=== PATIENT | male | born 1945 | race Caucasian/White ===

== ENCOUNTER 2017-12-07 18:23 | Emergency (ER) | payer OTHER, MEDICARE ==
[~2017-12-07] VITALS: Ht 185.4 cm; Wt 82.0 kg
[2017-12-07] MEDS ORDERED: IV NORMAL SALINE 1,000ML 1,000 ML IV SCH (18:51)
--- NOTE | 2017-12-07 18:59 | PHYS DOC ---
Past History Past Medical History: High Cholesterol, Hypertension, PA Past Surgical History: Other Additional Past Surgical Histo: stenting, AICD placement a smoker Smoking: Cigarettes, Greater than 1 pack/day Alcohol Use: None Drug Use: None Adult General Chief Complaint Chief Complaint: cough with myalgias [facility] HPI Patient is a pleasant 72-year-old male with a known history of CAD with prior stenting back in 2003+ the placement of an AICD pacemaker who presents with history of hypertension hyperlipidemia who now comes in with a three-day history of nonproductive cough during her myalgias and chest tightness. Patient says the symptoms began after being outside working at his job he felt a little chilled developed a low-grade fever developed a nonproductive cough with flulike symptoms. He's had aches in his upper back and shoulders or arms that is been described as achy not improved with Tylenol or oqtu-yvm-tzkouur TheraFlu , patient admits to no sick contacts, no recent travel outside the country no recent antibiotics. He is not in any kind DuoNeb's routinely at home is not been any recent steroids, been intubated and he does not use oxygen at home. Patient says there is no real chest pain just chest tightness and significant shortness of breath he just feels achy all over. he did receive a flu shot this year but Differential diagnosis includes the following: Acute myocardial ischemia, heart failure, cardiac tamponade, bronchospasm, pulmonary embolism, pneumothorax, pulmonary infection i.e. bronchitis or pneumonia, upper airway obstruction, anaphylaxis, aspiration, psychogenic, pulmonary contusion, toxidrome, pneumomediastinum, noncardiogenic pulmonary edema or ARDS, COPD, tuberculosis, cystic fibrosis, asthma, high altitude pulmonary edema, valvular dysfunction, cardiac dysrhythmia, stroke, neuromuscular diseases like myasthenia gravis gravis, ALS, Guillain-Pitts syndrome, metabolic acidosis to include diabetic ketoacidosis, sepsis, and obstructive disorders like massive obesity Review of Systems Review of Systems Constitutional: Positive for fevers chills but nothing documented. Eyes: Denies change in visual acuity, redness, or eye pain [] HENT: Positive for nasal congestion without sore throat Respiratory: Positive for cough and chest tightness but no chest shortness of breath Cardiovascular: No additional information not addressed in HPI [] GI: Denies abdominal pain, nausea, vomiting, bloody stools or diarrhea [] : Denies dysuria or hematuria [] Musculoskeletal: Denies back pain or joint pain positive for general myalgias nonspecific [] Integument: Denies rash or skin lesions [] Neurologic: Denies headache, focal weakness or sensory changes [] Endocrine: Denies polyuria or polydipsia [] All other systems were reviewed and found to be within normal limits, except as documented in this note. Allergies Allergies Allergies Coded Allergies Type Severity Reaction Last Updated Verified Penicillins Allergy Unknown 03/14/16 Yes Physical Exam Physical Exam Other vital signs recorded the chart within normal limits not hypoxic not tachypnea not febrile Constitutional: Well developed, well nourished, no acute distress, non-toxic appearance. [] HENT: Normocephalic, atraumatic, bilateral external ears normal, oropharynx dry mucous members with mild erythema but, no oral exudates, nose normal. [] Eyes: PERRLA, EOMI, conjunctiva normal, no discharge. [] Neck: Normal range of motion, no tenderness, supple, no stridor. No anterior cervical lymphadenopathy [] Cardiovascular:Heart rate regular rhythm, no murmur no gallops or rubs noted [] Lungs & Thorax: Bilateral breath sounds clear to auscultation she does have some coarse rhonchi at the bases with occasional exhalation [] Abdomen: Bowel sounds normal, soft, no tenderness, no masses, no pulsatile masses. [] Skin: Warm, dry, no erythema, no rash. [] Back: No tenderness, [] Extremities: No tenderness, no cyanosis, no clubbing, ROM intact, no edema. [] Neurologic: Alert and oriented X 3, normal motor function, normal sensory function, no focal deficits noted. [] Psychologic: Affect normal, judgement normal, mood normal. 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 There is no new ST segment T-wave changes consistent with acute cord ischemia today this isn't abnormal EKG. Radiology/Procedures Radiology/Procedures []Patient's 2 view chest x-ray by me that here in the emergency department demonstrates mild hyperinflated lungs but no distinct pulmonary infiltrates, consistent with a pneumonia, there is no cardiomegaly, there is some mild constipation to the aorta but no evidence of dissection, there is no free air under the diaphragm is noted on the chest x-ray patient also has no bony abnormalities. Course & Med Decision Making Course & Med Decision Making Pertinent Labs and Imaging studies reviewed. (See chart for details) []he presented with cough and myalgias and questionable chest tightness. Because of his cardiac risk factors and smoking we will screen him for flu, pneumonia and other causes of shortness of breath in my shortness of breath differential was considered above in the history of present illness. Patient be given Solu-Medrol, DuoNeb 1 flu swab will be completed as well as chest x-ray and appropriate cardiac workup. Laboratory Tests Test 12/07/17 19:03 White Blood Count 7.2 x10^3/uL (4.0-11.0) Red Blood Count 5.10 x10^6/uL (4.30-5.70) Hemoglobin 13.5 g/dL (13.0-17.5) Hematocrit 40.9 % (39.0-53.0) Mean Corpuscular Volume 80 fL (79-100) Mean Corpuscular Hemoglobin 27 pg (25-35) Mean Corpuscular Hemoglobin Concent 33 g/dL (31-37) Red Cell Distribution Width 15.5 % (11.5-14.5) H Platelet Count 124 x10^3/uL (140-400) L Neutrophils (%) (Auto) 74 % (31-73) H Lymphocytes (%) (Auto) 10 % (24-48) L Monocytes (%) (Auto) 11 % (0-9) H Eosinophils (%) (Auto) 5 % (0-3) H Basophils (%) (Auto) 1 % (0-3) Neutrophils # (Auto) 5.3 x10^3uL (1.8-7.7) Lymphocytes # (Auto) 0.8 x10^3/uL (1.0-4.8) L Monocytes # (Auto) 0.8 x10^3/uL (0.0-1.1) Eosinophils # (Auto) 0.3 x10^3/uL (0.0-0.7) Basophils # (Auto) 0.1 x10^3/uL (0.0-0.2) Sodium Level 136 mmol/L (136-145) Potassium Level 3.7 mmol/L (3.5-5.1) Chloride Level 101 mmol/L (98-107) Carbon Dioxide Level 25 mmol/L (21-32) Anion Gap 10 (6-14) Blood Urea Nitrogen 15 mg/dL (8-26) Creatinine 1.1 mg/dL (0.7-1.3) Estimated GFR (Cockcroft-Gault) 66.2 Glucose Level 124 mg/dL (70-99) H Calcium Level 10.0 mg/dL (8.5-10.1) Magnesium Level 1.8 mg/dL (1.8-2.4) Total Bilirubin 0.2 mg/dL (0.2-1.0) Direct Bilirubin 0.1 mg/dL (0.0-0.2) Aspartate Amino Transferase (AST) 27 U/L (15-37) Alanine Aminotransferase (ALT) 28 U/L (16-63) Alkaline Phosphatase 77 U/L (46-116) Creatine Kinase 185 U/L (39-308) Creatine Kinase MB (Mass) 0.5 ng/mL (0.0-3.6) Creatine Kinase MB Relative Index 0.3 % (0-4) Troponin I Quantitative 0.034 ng/mL (0-0.055) TI-Kvg-N-Type Natriuretic Peptide 487 pg/mL (0-124) H Total Protein 7.3 g/dL (6.4-8.2) Albumin 3.5 g/dL (3.4-5.0) Lipase 215 U/L (73-393) Influenza Type A (Rapid) Positive (NEGATIVE) Influenza Type B (Rapid) Negative (NEGATIVE) Patient's white blood cell count is normal, H&H is normal, patient does have a neutrophil predominance like from an acute phase reactant from an infection. Patient's influenza swab was positive for influenza a negative for influenza B patient's troponin was negative, patient's proBNP was mildly elevated at 487. Do not believe the patient is informed failure patient's lipase is normal at 2: 15, LFTs within normal limits, patient's glucose level is mildly elevated at 128. At this point patient's family and I discussed the results. Patient tells me that their symptoms given during CC are improved. We reviewed labs and radiology reports with patient and any family at bedside. He is feeling better time is now 8:26 PM his tachycardia is improved his fevers is resolved patient is satting 100% on room air he is comfortable History: patient has a history of an risk factors for heart disease I screened him for heart injury at this particular evaluation. Given his low suspicion on history, no changes on EKG, his age and negative troponin he is low risk at this time and will follow-up with his primary care doctor. His score was 2. Highly suspicious 2 points moderately suspicious 1. slightly suspicious 0 point EKG: ST segment depression 2. nonspecific repolarization disturbance 1. normal 0 point Age: Greater than 65 2 points, 65-45 1., less than 45 years old 0 points Risk factors:> 3 risk factors 2 points, 1-2 risk factors one point, no risk factors 0 point Troponin: > 2 times normal 2 points, 1-2 times normal 1., normal limits 0 point Total score: Score % pts MACE/n MACE Policy 0-3 32% 1.9% 0.05% Discharge 4-6 51% 413/3136 13% 1.3% Observation Risk management 7-10 17% 518/1045 50% 2.8% Observation Treatment, CAG discharge: I've spoken with the patient and/or caregivers. I've explained the patient's condition, diagnosis and treatment plan based on information available to me at this time. I've answered the patient's and/or caregivers questions and addressed any concerns. The patient and/or caregivers have a good understanding the patient's diagnosis, condition and treatment plan as can be expected at this point. Vital signs have been stabilized. The patient's condition is stable for discharge from the emergency department. The patient will pursue further outpatient evaluation with her primary care provider or other designated consulting physician as outlined in the discharge instructions. Patient and/or caregivers are agreeable to this plan of care and follow-up instructions have been explained in detail. The patient and/or caregivers have received these instructions in written format and expressed understanding of these discharge instructions. The patient and her caregivers are aware that if any significant change in condition or worsening of symptoms should prompt him to immediately return to this of the closest emergency department. If an emergent department is not readily available I would encourage him to call 911. Guero Disclaimer Guero Disclaimer This electronic medical record was generated, in whole or in part, using a voice recognition dictation system. Departure Departure: Impression: Primary Impression: Influenza A Disposition: 01 HOME, SELF-CARE Condition: IMPROVED Referrals: ALEKSANDR DAVIS (PCP) Patient Instructions: Influenza A (H1N1) Additional Instructions: discharge: I've spoken with the patient and/or caregivers. I've explained the patient's condition, diagnosis and treatment plan based on information available to me at this time. I've answered the patient's and/or caregivers questions and addressed any concerns. The patient and/or caregivers have a good understanding the patient's diagnosis, condition and treatment plan as can be expected at this point. Vital signs have been stabilized. The patient's condition is stable for discharge from the emergency department. The patient will pursue further outpatient evaluation with her primary care provider or other designated consulting physician as outlined in the discharge instructions. Patient and/or caregivers are agreeable to this plan of care and follow-up instructions have been explained in detail. The patient and/or caregivers have received these instructions in written format and expressed understanding of these discharge instructions. The patient and her caregivers are aware that if any significant change in condition or worsening of symptoms should prompt him to immediately return to this of the closest emergency department. If an emergent department is not readily available I would encourage him to call 911. Scripts Benzonatate (TESSALON PERLE) 100 Mg Capsule 1 CAP PO TID, #21 CAP Prov: GLENIS PACHECO MD 12/07/17 Naproxen Sodium (NAPROXEN SODIUM) 275 Mg Tablet 275 MG PO BID for 7 Days, #14 TAB Prov: GLENIS PACHECO MD 12/07/17 Guaifenesin/Dextromethorphan (MUCINEX DM ER 1,200-60 MG TAB) 1 Each Tbmp.12hr 1 TAB PO BID, #20 TAB 1 Refill Prov: GLENIS PACHECO MD 12/07/17 Oseltamivir Phosphate (TAMIFLU) 75 Mg Capsule 1 CAP PO BID, #10 CAP Prov: GLENIS PACHECO MD 12/07/17 GLENIS PACHECO MD Dec 07, 2017 18:59
[2017-12-07] MEDS ORDERED: 0.9 % SODIUM CHLORIDE 10 ML DISP.SYRIN. IV PRN (19:00)
[2017-12-07] MEDS ORDERED: IPRATRPIUM/ALBUTEROL 0.5/2.5MG 3 ML NEBU. NEB ONE (19:00)
[2017-12-07] MEDS ORDERED: CIPROFLOXACIN 400MG PREMIX 200 ML IV ONE (19:00)
[2017-12-07] MEDS ORDERED: methylPREDNISolone SOD SUCC PF 125 MG/2 ML VIAL. IV ONE (19:00)
[2017-12-07 19:48] LABS: BASO # 0.1 x10^3/uL (0.0-0.2); BASO % 1 % (0-3); EOS # 0.3 x10^3/uL (0.0-0.7); EOS % 5 % (0-3); HEMATOCRIT 40.9 % (39.0-53.0); HEMOGLOBIN 13.5 g/dL (13.0-17.5); LYMPH # 0.8 x10^3/uL (1.0-4.8); LYMPH % 10 % (24-48); MEAN CORPUSCULAR HEMOGLOBIN 27 pg (25-35); MEAN CORPUSCULAR HGB CONC 33 g/dL (31-37); MEAN CORPUSCULAR VOLUME 80 fL (79-100); MONO # 0.8 x10^3/uL (0.0-1.1); MONO % 11 % (0-9); NEUT # 5.3 x10^3uL (1.8-7.7); NEUT % 74 % (31-73); PLATELET COUNT 124 x10^3/uL (140-400); RED CELL DISTRIBUTION WIDTH 15.5 % (11.5-14.5); WHITE BLOOD COUNT 7.2 x10^3/uL (4.0-11.0)
[2017-12-07 20:01] LABS: INFLUENZA A PATIENT POSITIVE (NEGATIVE); INFLUENZA B PATIENT NEGATIVE (NEGATIVE)
[2017-12-07 20:06] LABS: ALBUMIN 3.5 g/dL (3.4-5.0); CREATININE 1.1 mg/dL (0.7-1.3); DIRECT BILIRUBIN 0.1 mg/dL (0.0-0.2); GFR 66.2; MAGNESIUM 1.8 mg/dL (1.8-2.4); POTASSIUM 3.7 mmol/L (3.5-5.1); TOTAL BILIRUBIN 0.2 mg/dL (0.2-1.0); TOTAL PROTEIN 7.3 g/dL (6.4-8.2)
[2017-12-07] MEDS ORDERED: BENZ100C PO (20:29)
[2017-12-07] MEDS ORDERED: GUAI1TBM10 PO (20:29)
[2017-12-07] MEDS ORDERED: NAPR275T59 PO (20:29)
[2017-12-07] MEDS ORDERED: OSEL75CA PO (20:29)
[2017-12-07 20:31] VITALS: BP 105/64
[2017-12-07] MEDS ORDERED: OSELTAMIVIR 75 MG CAPSULE PO ONE ×2 (20:34→21:00)
--- NOTE | 2017-12-08 08:05 | RAD ---
Chest, 2 views, 12/07/2017: History: Cough, shortness of breath, chest discomfort Comparison is made to a study from 03/14/2016. A left-sided transvenous pacing device remains in place with 3 leads extending into the right heart. The heart size and pulmonary vascularity are normal. There is calcific plaquing of the aorta. A linear calcification projected over the anterior aspect of the heart is probably pericardial. No pulmonary infiltrates are seen. There is no evidence of pleural fluid. IMPRESSION: No acute cardiopulmonary abnormality is detected.
--- NOTE | 2017-12-09 16:22 | EKG ---
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
== END 2017-12-07 20:49 | disposition home or self-care (01) ==
LOC: ER 18:23
DX: J09.X2 Influenza due to identified novel influenza A virus with other respiratory manifestations (principal); R07.89 Other chest pain; E78.00 Pure hypercholesterolemia, unspecified; I10 Essential (primary) hypertension; I25.2 Old myocardial infarction; I25.10 Atherosclerotic heart disease of native coronary artery without angina pectoris; F17.210 Nicotine dependence, cigarettes, uncomplicated; Z95.810 Presence of automatic (implantable) cardiac defibrillator; Z95.5 Presence of coronary angioplasty implant and graft; Z88.0 Allergy status to penicillin
CPT/HCPCS: 36415; 71046; 80048; 80076; 82553; 83690; 83735; 83880; 84443; 84484; 85025; 87804; 93005; 94640; 96365; 96375; 99285; J0744; J2930; J7620; J7030

== ENCOUNTER → 2017-12-11 | Outpatient (CLI) | payer MEDICARE, OTHER ==
[2017-12-07 20:31] VITALS: BP 105/64
[~2017-12-11] MED LIST: BENZ100C PO; GUAI1TBM10 PO; HYDR-79 PO; NAPR275T59 PO; OSEL75CA PO
--- NOTE | 2017-12-11 15:05 | RAD ---
Chest, 2 views, 12/11/2017: History: Dyspnea Comparison is made to a study from 12/07/2017. A left-sided transvenous pacemaker remains in place with active and inactive leads extending into the right heart. The heart size is normal. A coronary artery stent is projected over the posterior aspect of the heart. A calcification projected over the anterior aspect of the heart may be vascular or pericardial. There is calcific plaquing of the aorta. The pulmonary vascularity is normal. No pulmonary infiltrate is seen. There is no evidence of pleural fluid. IMPRESSION: No acute cardiopulmonary abnormality is detected.
== END | disposition home or self-care (01) ==
LOC: PMG 14:33
PROVIDERS: ATTEND Physician Assistant
DX: R06.00 Dyspnea, unspecified (principal); I11.0 Hypertensive heart disease with heart failure; I50.9 Heart failure, unspecified; F17.200 Nicotine dependence, unspecified, uncomplicated; Z95.0 Presence of cardiac pacemaker
CPT/HCPCS: 71046

== ENCOUNTER 2017-12-12 16:35 | Emergency (ER) | payer MEDICARE, OTHER ==
[~2017-12-12] VITALS: Ht 185.4 cm; Wt 77.1 kg
[~2017-12-12 16:35] MED LIST changes: -HYDR-79 PO
[2017-12-12] MEDS ORDERED: IPRATRPIUM/ALBUTEROL 0.5/2.5MG 3 ML NEBU. NEB ONE (17:00)
--- NOTE | 2017-12-12 17:08 | EKG ---
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
[2017-12-12] MEDS ORDERED: methylPREDNISolone SOD SUCC PF 125 MG/2 ML VIAL. IV ONE (17:30)
--- NOTE | 2017-12-12 18:21 | ED.ADGEN ---
Past History Past Medical History: CAD, High Cholesterol, Hypertension Past Surgical History: Pacemaker Additional Past Surgical Histo: stenting, AICD placement a smoker Smoking: Cigarettes, Greater than 1 pack/day Alcohol Use: None Drug Use: None Adult General Chief Complaint Chief Complaint " I got this cough... I know I got the flu... but I can't sleep because the coughing at night..." HPI HPI Patient is a 72 year old male who presents with above hx and complaints of cough that is keeping her up at night when he attempts to sleep. Patient is aware that he is been diagnosed with + Influ. A on 12/07/17. Only complaint is his cough. Patient has tried use MDI with minimal reduction in his cough. Patient denies any other changes in his overall medical condition. No recent travel. No specific ill contacts. Review of Systems Review of Systems Constitutional: History of fever or chills [] Eyes: Denies change in visual acuity, redness, or eye pain [] HENT: History of nasal congestion and sore throat [] Respiratory: Main presenting complaint is cough Cardiovascular: No additional information not addressed in HPI [] GI: Denies abdominal pain, nausea, vomiting, bloody stools or diarrhea [] : Denies dysuria or hematuria [] Musculoskeletal: Denies back pain or joint pain [] Integument: Denies rash or skin lesions [] Neurologic: Denies headache, focal weakness or sensory changes [] Endocrine: Denies polyuria or polydipsia [] All other systems were reviewed and found to be within normal limits, except as documented in this note. Family History Family History Noncontributory Current Medications Current Medications Current Medications Medications (Trade) Dose Ordered Sig/Isabela Start Time Stop Time Status Last Admin Dose Admin Albuterol/ Ipratropium (Duoneb) 3 ml 1X ONCE 12/12/17 17:00 12/12/17 17:01 DC 12/12/17 17:20 3 ML Methylprednisolone Sodium Succinate (SOLU-Medrol 125MG VIAL) 125 mg 1X ONCE 12/12/17 17:30 12/12/17 17:31 DC 12/12/17 17:58 125 MG Allergies Allergies Allergies Coded Allergies Type Severity Reaction Last Updated Verified Penicillins Allergy Unknown 12/12/17 Yes Physical Exam Physical Exam Constitutional: , no acute distress, non-toxic appearance. [] HENT: Normocephalic, atraumatic, bilateral external ears normal, oropharynx moist, injected pharynx, no oral exudates, nose swollen turbinates and rhinorrhea Eyes: PERRLA, EOMI, conjunctiva normal, no discharge. [] Neck: Normal range of motion, no tenderness, supple, no stridor. [] Cardiovascular:Heart rate regular rhythm, no murmur [] Lungs & Thorax: Bilateral breath sounds equal at apexes with few scattered wheezes auscultation [] Abdomen: Bowel sounds normal, soft, no tenderness, no masses, no pulsatile masses. [] Skin: Warm, dry, no erythema, no rash. [] Back: No tenderness, no CVA tenderness. [] Extremities: No tenderness, no cyanosis, no clubbing, ROM intact, no edema. Arthritic changes Neurologic: Alert and oriented X 3, normal motor function, normal sensory function, no focal deficits noted. [] Psychologic: Affect normal, judgement normal, mood normal. [] Current Patient Data Vital Signs Vital Signs Date Time Temp Pulse Resp B/P (MAP) Pulse Ox O2 Delivery O2 Flow Rate FiO2 12/12/17 19:32 65 18 146/70 (95) 96 12/12/17 18:51 Room Air 12/12/17 16:53 98.0 Lab Results Laboratory Tests Test 12/12/17 18:00 White Blood Count 8.6 x10^3/uL (4.0-11.0) Red Blood Count 4.94 x10^6/uL (4.30-5.70) Hemoglobin 13.2 g/dL (13.0-17.5) Hematocrit 39.7 % (39.0-53.0) Mean Corpuscular Volume 80 fL (79-100) Mean Corpuscular Hemoglobin 27 pg (25-35) Mean Corpuscular Hemoglobin Concent 33 g/dL (31-37) Red Cell Distribution Width 15.1 % (11.5-14.5) H Platelet Count 147 x10^3/uL (140-400) Neutrophils (%) (Auto) 72 % (31-73) Lymphocytes (%) (Auto) 18 % (24-48) L Monocytes (%) (Auto) 8 % (0-9) Eosinophils (%) (Auto) 3 % (0-3) Basophils (%) (Auto) 0 % (0-3) Neutrophils # (Auto) 6.2 x10^3uL (1.8-7.7) Lymphocytes # (Auto) 1.5 x10^3/uL (1.0-4.8) Monocytes # (Auto) 0.6 x10^3/uL (0.0-1.1) Eosinophils # (Auto) 0.3 x10^3/uL (0.0-0.7) Basophils # (Auto) 0.0 x10^3/uL (0.0-0.2) Sodium Level 138 mmol/L (136-145) Potassium Level 4.0 mmol/L (3.5-5.1) Chloride Level 105 mmol/L (98-107) Carbon Dioxide Level 25 mmol/L (21-32) Anion Gap 8 (6-14) Blood Urea Nitrogen 22 mg/dL (8-26) Creatinine 1.0 mg/dL (0.7-1.3) Estimated GFR (Cockcroft-Gault) 73.9 BUN/Creatinine Ratio 22 (6-20) H Glucose Level 105 mg/dL (70-99) H Lactic Acid Level 0.8 mmol/L (0.4-2.0) Calcium Level 10.2 mg/dL (8.5-10.1) H Total Bilirubin 0.2 mg/dL (0.2-1.0) Aspartate Amino Transferase (AST) 30 U/L (15-37) Alanine Aminotransferase (ALT) 33 U/L (16-63) Alkaline Phosphatase 74 U/L (46-116) Creatine Kinase 232 U/L (39-308) Creatine Kinase MB (Mass) 1.9 ng/mL (0.0-3.6) Creatine Kinase MB Relative Index 0.8 % (0-4) Troponin I Quantitative 0.028 ng/mL (0-0.055) JM-Xym-A-Type Natriuretic Peptide 408 pg/mL (0-124) H Total Protein 7.1 g/dL (6.4-8.2) Albumin 3.5 g/dL (3.4-5.0) Albumin/Globulin Ratio 1.0 (1.0-1.7) EKG EKG Bradycardia at 58 bpm. Does have an occasional premature atrial complex. No findings acute STEMI of contralateral changes. Does have some nonspecific inferior changes.[] Radiology/Procedures Radiology/Procedures My interpretation of chest x-ray shows pacer placement. Some patchy chronic changes. But no significant change from previous chest x-ray on 12/07[] Course & Med Decision Making Course & Med Decision Making Pertinent Labs and Imaging studies reviewed. (See chart for details). Patient continue meds as previous directed. Patient use him GI 2 puffs 4 times a day and before going to bed. Patient may try to use Benadryl 50 mg with Vicoprofen at bedtime only for coughing suppression. Explained to patient coughing was important to keep his lungs clear. Total suppression could result in atelectasis or development of a PNEUMONIA. Patient follow-up primary care. Patient return if any concerns. [] Final Impression Final Impression 1. Influenza A 2. Intermittent coughing episodes[] Problems: Dragon Disclaimer Dragon Disclaimer This electronic medical record was generated, in whole or in part, using a voice recognition dictation system. SHANNON DAWN MD Dec 12, 2017 18:21
[2017-12-12 18:35] LABS: BASO % 0 % (0-3); EOS # 0.3 x10^3/uL (0.0-0.7); EOS % 3 % (0-3); HEMATOCRIT 39.7 % (39.0-53.0); HEMOGLOBIN 13.2 g/dL (13.0-17.5); LYMPH # 1.5 x10^3/uL (1.0-4.8); LYMPH % 18 % (24-48); MEAN CORPUSCULAR HEMOGLOBIN 27 pg (25-35); MEAN CORPUSCULAR HGB CONC 33 g/dL (31-37); MEAN CORPUSCULAR VOLUME 80 fL (79-100); MONO # 0.6 x10^3/uL (0.0-1.1); MONO % 8 % (0-9); NEUT # 6.2 x10^3uL (1.8-7.7); NEUT % 72 % (31-73); PLATELET COUNT 147 x10^3/uL (140-400); RED BLOOD COUNT 4.94 x10^6/uL (4.30-5.70); RED CELL DISTRIBUTION WIDTH 15.1 % (11.5-14.5); WHITE BLOOD COUNT 8.6 x10^3/uL (4.0-11.0)
[2017-12-12 18:54] LABS: ALBUMIN 3.5 g/dL (3.4-5.0); CALCIUM 10.2 mg/dL (8.5-10.1); GFR 73.9; TOTAL BILIRUBIN 0.2 mg/dL (0.2-1.0); TOTAL PROTEIN 7.1 g/dL (6.4-8.2)
[2017-12-12] MEDS ORDERED: HYDR-79 PO (19:29)
[2017-12-12 19:32] VITALS: BP 146/70
--- NOTE | 2017-12-13 08:53 | RAD ---
Indication: Cough and short of air. Technique: Two-view chest radiograph was obtained. Comparison is from one day earlier. Findings: The lungs are clear. There is no pleural effusion. The heart is not enlarged and there is no heart failure. Pacemaker is noted. There are minimal degenerative changes in the spine. Impression: No acute thoracic findings.
== END 2017-12-12 19:33 | disposition home or self-care (01) ==
LOC: ER 16:35
DX: J09.X2 Influenza due to identified novel influenza A virus with other respiratory manifestations (principal); I25.10 Atherosclerotic heart disease of native coronary artery without angina pectoris; E78.00 Pure hypercholesterolemia, unspecified; I10 Essential (primary) hypertension; F17.210 Nicotine dependence, cigarettes, uncomplicated; Z95.810 Presence of automatic (implantable) cardiac defibrillator; Z88.0 Allergy status to penicillin
CPT/HCPCS: 36415; 71046; 80053; 82553; 83605; 83880; 84484; 85025; 87040; 93005; 94640; 96374; 99285; J2930; J7620

== ENCOUNTER → 2018-05-27 | Outpatient (CLI) | payer MEDICARE, OTHER ==
[~2018-05-27] MED LIST changes: +HYDR-79 PO; +IOHEXOL 240 MG/ML 50ML VIAL. ONE; +IOHEXOL 240 MG/ML 50ML VIAL. PO ONE; +IOHEXOL 300 MG/ML 75 ML VIAL. IV ONE
[2018-05-27 09:47] LABS: CREATININE 1.1 mg/dL (0.7-1.3)
--- NOTE | 2018-05-27 11:04 | RAD ---
CT ABD PELV W/ORAL IV CONTRAST dated 05/27/2018 10:16 AM Indication:..ABDOMINAL PAIN WITH STOMACH CRAMPING FOR AWHILE. ORAL AND 75MLS OMNI 300 IV CONTRAST pain Comparison: No comparison is available. Technique: Contiguous axial imaging the abdomen and pelvis performed after administration of 75 cc Omnipaque 300. One or more of the following individualized dose reduction techniques were utilized for this examination: 1. Automated exposure control 2. Adjustment of the mA and/or kV according to patient size 3. Use of iterative reconstruction technique Findings: Limited images of lung bases are clear. Heart size within normal limits. No pleural or pericardial effusion. Liver, spleen, pancreas, unremarkable. Low-density nodule of the right adrenal gland measures 2.6 cm in size, indeterminate. There is also mild thickening and nodularity of the left adrenal gland. Gallbladder and kidneys are unremarkable. No hydronephrosis. There are 2 small calculi at the lower pole left kidney that measure 2 to 3 mm in size each. There is also probable small cyst at the lower pole right kidney. Partially opacified GI tract normal in caliber and contour. No focal bowel wall thickening. No inflammatory stranding in the mesentery. The appendix is normal in caliber. No ascites or lymphadenopathy. Abdominal aorta normal in caliber with diffuse atherosclerotic calcifications. Images of pelvis show mildly distended urinary bladder. There is diffuse bladder wall thickening with heterogeneous enlargement of the prostate gland. No free fluid or lymphadenopathy. Bone windows show no acute findings. Multilevel spondylosis. IMPRESSION: 1. No acute abnormality of abdomen or pelvis. Normal appendix. 2. Left-sided nephrolithiasis, nonobstructive. 3. Indeterminate nodules of the bilateral adrenal glands. Statistically these most likely represent benign adenomas. 6-12 month follow-up to ensure stability. Alternatively, these could be further evaluated with adrenal MRI or washout CT. Electronically signed by: [place] MD (05/27/2018 11:01 AM) [id number]
== END | disposition home or self-care (01) ==
LOC: CT 09:08
PROVIDERS: ATTEND Physician Assistant
DX: N20.0 Calculus of kidney (principal); I11.0 Hypertensive heart disease with heart failure; I50.9 Heart failure, unspecified; E78.00 Pure hypercholesterolemia, unspecified; Z79.01 Long term (current) use of anticoagulants; Z87.891 Personal history of nicotine dependence
CPT/HCPCS: 36415; 74177; 82565; 84520; Q9966; Q9967

== ENCOUNTER 2018-07-03 09:38 | Emergency (ER) | payer MEDICARE, OTHER ==
[~2018-07-03] VITALS: Ht 185.4 cm; Wt 82.0 kg
[~2018-07-03 09:38] MED LIST changes: -IOHEXOL 240 MG/ML 50ML VIAL. ONE; -IOHEXOL 240 MG/ML 50ML VIAL. PO ONE; -IOHEXOL 300 MG/ML 75 ML VIAL. IV ONE
[2018-07-03] MEDS ORDERED: IV NORMAL SALINE 1,000ML 1,000 ML IV SCH (09:58)
[2018-07-03 10:17] LABS: FECAL OB PT POSITIVE (NEG)
[2018-07-03] MEDS ORDERED: PANTOPRAZOLE IV 40 MG VIAL. IVP ONE (10:30)
[2018-07-03 10:39] LABS: BASO % 1 % (0-3); EOS # 0.4 x10^3/uL (0.0-0.7); EOS % 6 % (0-3); HEMOGLOBIN 14.5 g/dL (13.0-17.5); LYMPH # 1.3 x10^3/uL (1.0-4.8); LYMPH % 19 % (24-48); MEAN CORPUSCULAR HEMOGLOBIN 29 pg (25-35); MEAN CORPUSCULAR HGB CONC 34 g/dL (31-37); MEAN CORPUSCULAR VOLUME 85 fL (79-100); MONO # 0.6 x10^3/uL (0.0-1.1); MONO % 8 % (0-9); NEUT # 4.6 x10^3uL (1.8-7.7); NEUT % 67 % (31-73); PLATELET COUNT 183 x10^3/uL (140-400); RED BLOOD COUNT 5.04 x10^6/uL (4.30-5.70); RED CELL DISTRIBUTION WIDTH 14.4 % (11.5-14.5); WHITE BLOOD COUNT 6.8 x10^3/uL (4.0-11.0)
[2018-07-03 10:47] LABS: ALBUMIN 3.8 g/dL (3.4-5.0); CALCIUM 10.7 mg/dL (8.5-10.1); CREATININE 1.2 mg/dL (0.7-1.3); GFR 59.7; POTASSIUM 4.2 mmol/L (3.5-5.1); TOTAL BILIRUBIN 0.4 mg/dL (0.2-1.0); TOTAL PROTEIN 7.7 g/dL (6.4-8.2)
[2018-07-03 11:23] LABS: BACTERIA,URINE 0 /HPF (0-FEW); BILIRUBIN,URINE NEG (NEG); CLARITY,URINE CLEAR; COLOR,URINE YELLOW; GLUCOSE,URINE NEG (NEG); NITRITE,URINE NEG (NEG); RBC,URINE 0 /HPF (0-2); SQUAMOUS EPITHELIAL CELL,UR OCC /LPF; UROBILINOGEN,URINE 0.2 mg/dL (0.2 mg/dL); WBC,URINE RARE /HPF (0-4)
[2018-07-03 11:34] VITALS: BP 156/80
--- NOTE | 2018-07-03 12:10 | PHYS DOC ---
Past History Past Medical History: CAD, High Cholesterol, Hypertension Past Surgical History: Pacemaker, Other Additional Past Surgical Histo: stenting, AICD placement a smoker Smoking: Cigarettes, Greater than 1 pack/day Alcohol Use: None Drug Use: None Adult General Chief Complaint Chief Complaint: BLOODY STOOL HPI HPI 73-year-old male patient with history of defibrillator in place and taking Coumadin 6 mg daily and history of hemorrhoids complaining of bloody stools for the last 4 days that gradually getting force. Patient states 1 or 2 episodes of bloody stool with blood before starting stools without rectal pain, nausea and vomiting, abdominal pain. Patient complaining of mild weakness. Patient states he had increase of bloody stools this morning and decided to come to emergency room. Patient continued taking his Coumadin and his last INR 2 weeks ago about 2.4 Review of Systems Review of Systems Constitutional: Denies fever or chills [] Eyes: Denies change in visual acuity, redness, or eye pain [] HENT: Denies nasal congestion or sore throat [] Respiratory: Denies cough or shortness of breath [] Cardiovascular: No additional information not addressed in HPI [] GI: Denies abdominal pain, nausea, vomiting, reports bloody stools .[] : Denies dysuria or hematuria [] Musculoskeletal: Denies back pain or joint pain [] Integument: Denies rash or skin lesions [] Neurologic: Denies headache, focal weakness or sensory changes [] Endocrine: Denies polyuria or polydipsia [] All other systems were reviewed and found to be within normal limits, except as documented in this note. Current Medications Current Medications Current Medications Medications (Trade) Dose Ordered Sig/Isabela Start Time Stop Time Status Last Admin Dose Admin Pantoprazole Sodium (Protonix Vial) 40 mg 1X ONCE 07/03/18 10:30 07/03/18 10:31 DC 07/03/18 10:40 40 MG Sodium Chloride 1,000 ml @ 1,000 mls/hr Q1H 07/03/18 09:58 07/03/18 10:57 DC 07/03/18 10:40 1,000 MLS/HR Allergies Allergies Allergies Coded Allergies Type Severity Reaction Last Updated Verified Penicillins Allergy Unknown 12/12/17 Yes Physical Exam Physical Exam Constitutional: Well developed, well nourished, no acute distress, non-toxic appearance. [] HENT: Normocephalic, atraumatic, oropharynx moist, no oral exudates, nose normal. [] Eyes: PERRLA, EOMI, conjunctiva normal, no discharge. [] Neck: Normal range of motion, no tenderness, supple, no stridor. 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 [] Back: No tenderness, no CVA tenderness. [] Extremities: No tenderness, no cyanosis, no clubbing, ROM intact, no edema. [] Neurologic: Alert and oriented X 3, normal motor function, normal sensory function, no focal deficits noted. [] Psychologic: Affect normal, judgement normal, mood normal. [] Current Patient Data Vital Signs Vital Signs Date Time Temp Pulse Resp B/P (MAP) Pulse Ox O2 Delivery O2 Flow Rate FiO2 07/03/18 11:34 67 18 156/80 (105) 98 07/03/18 10:14 98.7 Room Air Lab Results Laboratory Tests Test 07/03/18 09:52 07/03/18 10:03 07/03/18 10:41 Stool Occult Blood Positive (NEG) White Blood Count 6.8 x10^3/uL (4.0-11.0) Red Blood Count 5.04 x10^6/uL (4.30-5.70) Hemoglobin 14.5 g/dL (13.0-17.5) Hematocrit 43.0 % (39.0-53.0) Mean Corpuscular Volume 85 fL (79-100) Mean Corpuscular Hemoglobin 29 pg (25-35) Mean Corpuscular Hemoglobin Concent 34 g/dL (31-37) Red Cell Distribution Width 14.4 % (11.5-14.5) Platelet Count 183 x10^3/uL (140-400) Neutrophils (%) (Auto) 67 % (31-73) Lymphocytes (%) (Auto) 19 % (24-48) L Monocytes (%) (Auto) 8 % (0-9) Eosinophils (%) (Auto) 6 % (0-3) H Basophils (%) (Auto) 1 % (0-3) Neutrophils # (Auto) 4.6 x10^3uL (1.8-7.7) Lymphocytes # (Auto) 1.3 x10^3/uL (1.0-4.8) Monocytes # (Auto) 0.6 x10^3/uL (0.0-1.1) Eosinophils # (Auto) 0.4 x10^3/uL (0.0-0.7) Basophils # (Auto) 0.0 x10^3/uL (0.0-0.2) Prothrombin Time 24.1 SEC (9.4-11.4) H Prothrombin Time INR 2.4 (0.9-1.1) H PTT 31 SEC (23-33) Sodium Level 139 mmol/L (136-145) Potassium Level 4.2 mmol/L (3.5-5.1) Chloride Level 104 mmol/L (98-107) Carbon Dioxide Level 26 mmol/L (21-32) Anion Gap 9 (6-14) Blood Urea Nitrogen 17 mg/dL (8-26) Creatinine 1.2 mg/dL (0.7-1.3) Estimated GFR (Cockcroft-Gault) 59.7 BUN/Creatinine Ratio 14 (6-20) Glucose Level 106 mg/dL (70-99) H Calcium Level 10.7 mg/dL (8.5-10.1) H Total Bilirubin 0.4 mg/dL (0.2-1.0) Aspartate Amino Transferase (AST) 25 U/L (15-37) Alanine Aminotransferase (ALT) 35 U/L (16-63) Alkaline Phosphatase 85 U/L (46-116) Total Protein 7.7 g/dL (6.4-8.2) Albumin 3.8 g/dL (3.4-5.0) Albumin/Globulin Ratio 1.0 (1.0-1.7) Lipase 228 U/L (73-393) Urine Collection Type Unknown Urine Color Yellow Urine Clarity Clear Urine pH 7.0 Urine Specific Davis 1.015 Urine Protein Neg (NEG-TRACE) Urine Glucose (UA) Neg mg/dL (NEG) Urine Ketones (Stick) Neg mg/dL (NEG) Urine Blood Neg (NEG) Urine Nitrite Neg (NEG) Urine Bilirubin Neg (NEG) Urine Urobilinogen Dipstick 0.2 mg/dL (0.2 mg/dL) Urine Leukocyte Esterase Trace (NEG) Urine RBC 0 /HPF (0-2) Urine WBC Rare /HPF (0-4) Urine Squamous Epithelial Cells Occ /LPF Urine Bacteria 0 /HPF (0-FEW) EKG EKG [] Radiology/Procedures Radiology/Procedures [] Course & Med Decision Making Course & Med Decision Making Pertinent Labs reviewed. (See chart for details) Evaluation of patient in ER showed 73-year-old male patient on Coumadin with complaining of rectal bleeding for the last 4 days. Patient had unremarkable physical exam and negative orthostatic vital. Hemoglobin was 14.5 and INR was 2.4. Dr. French on-call GI was informed at 1145 and recommended to hold Coumadin and follow with him in 3 days on Friday. Patient was instructed to return to emergency room if not getting better. [] Dragon Disclaimer Dragon Disclaimer This electronic medical record was generated, in whole or in part, using a voice recognition dictation system. Departure Departure: Impression: Primary Impression: Rectal bleeding Additional Impressions: Bleeding on Coumadin Hypercalcemia Disposition: HOME, SELF-CARE Referrals: ALEKSANDR DAVIS (PCP) SARAH BETH FRENCH MD Patient Instructions: Hemorrhoids, Rectal Bleeding, Warfarin Coagulopathy Additional Instructions: Do not take Coumadin until Friday Follow up with GI on-call Dr French on Friday Return to ER if not getting better Problem Qualifiers KORI FOX MD Jul 03, 2018 12:10
== END 2018-07-03 12:23 | disposition home or self-care (01) ==
LOC: ER 09:38
DX: K62.5 Hemorrhage of anus and rectum (principal); E83.52 Hypercalcemia; K64.4 Residual hemorrhoidal skin tags; I25.10 Atherosclerotic heart disease of native coronary artery without angina pectoris; I10 Essential (primary) hypertension; E78.00 Pure hypercholesterolemia, unspecified; F17.210 Nicotine dependence, cigarettes, uncomplicated; Z95.0 Presence of cardiac pacemaker; Z79.01 Long term (current) use of anticoagulants; Z88.0 Allergy status to penicillin
CPT/HCPCS: 36415; 80053; 81001; 82274; 83690; 85025; 85610; 85730; 87086; 96361; 96374; 99284; C9113; J7030

== ENCOUNTER 2018-07-05 10:44 | Emergency (ER) | payer MEDICARE, OTHER ==
[~2018-07-05] VITALS: Ht 185.4 cm; Wt 82.0 kg
[2018-07-05 10:59] VITALS: BP 123/70
--- NOTE | 2018-07-05 11:04 | PHYS DOC ---
Past History Past Medical History: CAD, High Cholesterol, Hypertension Past Surgical History: Pacemaker, Other Additional Past Surgical Histo: stenting, AICD placement a smoker Smoking: Cigarettes, Greater than 1 pack/day Alcohol Use: None Drug Use: None Adult General Chief Complaint Chief Complaint: RECTAL BLEED HPI HPI Patient is a 73 year old male who presents with INR recheck. Patient was here initially 2 days ago for what is presumed GI bleeding from chronic hemorrhoids while on Coumadin and states he felt better after IV fluids. Patient states that today everything is fine unless she stands up that he feels weak. Patient denies any near syncopal episodes but states she just feels like he doesn't have any energy and came in for further evaluation and management. Patient states that the bleeding from his hemorrhoids has remained the same and has not increased or decreased. Pt was initially seen in the emergency department 48 hours ago, on July 03, 2018 with the following presenting history. "73-year-old male patient with history of defibrillator in place and taking Coumadin 6 mg daily and history of hemorrhoids complaining of bloody stools for the last 4 days that gradually getting force. Patient states 1 or 2 episodes of bloody stool with blood before starting stools without rectal pain, nausea and vomiting, abdominal pain. Patient complaining of mild weakness. Patient states he had increase of bloody stools this morning and decided to come to emergency room. Patient continued taking his Coumadin and his last INR 2 weeks ago about 2.4" Patient's GI physician was consult with the following commendations from their specialist,Dr French, on July 03, 2018: Course & Med Decision Making [ July 03, 2018] Course & Med Decision Making Evaluation of patient in ER showed 73-year-old male patient on Coumadin with complaining of rectal bleeding for the last 4 days. Patient had unremarkable physical exam and negative orthostatic vital. Hemoglobin was 14.5 and INR was 2.4. Dr. French on-call GI was informed at 1145 and recommended to hold Coumadin and follow with him in 3 days on Friday. Patient was instructed to return to emergency room if not getting better. [] Review of Systems Review of Systems Constitutional: Denies fever or chills [] Eyes: Denies change in visual acuity, redness, or eye pain [] HENT: Denies nasal congestion or sore throat [] Respiratory: Denies cough or shortness of breath [] Cardiovascular: No additional information not addressed in HPI [] GI: Denies abdominal pain, nausea, vomiting, bloody stools or diarrhea [] : Denies dysuria or hematuria [] Musculoskeletal: Denies back pain or joint pain [] Integument: Denies rash or skin lesions [] Neurologic: Denies headache, focal weakness or sensory changes [] Endocrine: Denies polyuria or polydipsia [] All other systems were reviewed and found to be within normal limits, except as documented in this note. Allergies Allergies Allergies Coded Allergies Type Severity Reaction Last Updated Verified Penicillins Allergy Unknown 12/12/17 Yes Physical Exam Physical Exam Constitutional: Well developed, well nourished, no acute distress, non-toxic appearance. [] HENT: Normocephalic, atraumatic, bilateral external ears normal, oropharynx moist, no oral exudates, nose normal. [] Eyes: PERRLA, EOMI, conjunctiva normal, no discharge. [] Neck: Normal range of motion, no tenderness, supple, no stridor. [] Cardiovascular:Heart rate regular rhythm, no murmur [] Lungs & Thorax: Bilateral breath sounds clear to auscultation [] Abdomen: Bowel sounds normal, soft, no tenderness, no masses, no pulsatile masses. [] Skin: Warm, dry, no erythema, no rash. [] Back: No tenderness, no CVA tenderness. [] Extremities: No tenderness, no cyanosis, no clubbing, ROM intact, no edema. [] Neurologic: Alert and oriented X 3, normal motor function, normal sensory function, no focal deficits noted. [] Psychologic: Affect normal, judgement normal, mood normal. [] EKG EKG [] Radiology/Procedures Radiology/Procedures [] Course & Med Decision Making Course & Med Decision Making Pertinent Labs and Imaging studies reviewed. (See chart for details) [] Dragon Disclaimer Dragon Disclaimer This electronic medical record was generated, in whole or in part, using a voice recognition dictation system. Departure Departure: Impression: Primary Impression: Weakness Additional Impressions: GI bleed Hemorrhoids Disposition: HOME, SELF-CARE Condition: STABLE Referrals: ALEKSANDR DAVIS (PCP) Problem Qualifiers BREE HATCH MD Jul 05, 2018 11:04
[2018-07-05 11:28] LABS: BASO % 1 % (0-3); EOS # 0.3 x10^3/uL (0.0-0.7); EOS % 5 % (0-3); HEMATOCRIT 38.7 % (39.0-53.0); HEMOGLOBIN 13.1 g/dL (13.0-17.5); LYMPH # 1.2 x10^3/uL (1.0-4.8); LYMPH % 19 % (24-48); MEAN CORPUSCULAR HEMOGLOBIN 29 pg (25-35); MEAN CORPUSCULAR HGB CONC 34 g/dL (31-37); MEAN CORPUSCULAR VOLUME 86 fL (79-100); MONO # 0.6 x10^3/uL (0.0-1.1); MONO % 10 % (0-9); NEUT # 4.1 x10^3uL (1.8-7.7); NEUT % 66 % (31-73); PLATELET COUNT 174 x10^3/uL (140-400); RED BLOOD COUNT 4.52 x10^6/uL (4.30-5.70); RED CELL DISTRIBUTION WIDTH 14.5 % (11.5-14.5); WHITE BLOOD COUNT 6.2 x10^3/uL (4.0-11.0)
[2018-07-05] MEDS ORDERED: IV NORMAL SALINE 1,000ML 1,000 ML IV ONE (11:30)
[2018-07-05 11:39] LABS: ALBUMIN 3.6 g/dL (3.4-5.0); CALCIUM 10.5 mg/dL (8.5-10.1); CREATININE 1.1 mg/dL (0.7-1.3); POTASSIUM 4.1 mmol/L (3.5-5.1); TOTAL BILIRUBIN 0.4 mg/dL (0.2-1.0); TOTAL PROTEIN 7.1 g/dL (6.4-8.2)
== END 2018-07-05 12:20 | disposition home or self-care (01) ==
LOC: ER 10:44
DX: R53.1 Weakness (principal); K92.2 Gastrointestinal hemorrhage, unspecified; K64.9 Unspecified hemorrhoids; I25.10 Atherosclerotic heart disease of native coronary artery without angina pectoris; E78.00 Pure hypercholesterolemia, unspecified; I10 Essential (primary) hypertension; F17.210 Nicotine dependence, cigarettes, uncomplicated; Z95.810 Presence of automatic (implantable) cardiac defibrillator; Z88.0 Allergy status to penicillin
CPT/HCPCS: 36415; 80053; 85025; 85610; 99284; J7030

== ENCOUNTER 2018-07-15 12:16 | Emergency (ER) | payer MEDICARE, OTHER ==
[~2018-07-15] VITALS: Ht 182.9 cm; Wt 77.6 kg
--- NOTE | 2018-07-15 12:40 | EKG ---
[address] [address] Test Date: 2018-07-15 Test Time: 12:24:57 Pat Name: ELADIO BUSTILLOS Department: Room: Gender: M Radiology Nurse: : 1945 Requested By: MILAGROS COLÓN Order Number: [id number] Reading MD: Pranav Ryan MD Measurements Intervals [place] Rate: 55 P: ND: QRS: 47 QRSD: 90 T: 114 QT: 452 QTc: 435 Interpretive Statements SR PRIOR SEPTAL INFARCT PROBABLE. NO SIGNIFICANT CHANGES FROM PRIOR. Electronically Signed On 07-15-2018 12:46:12 CDT by Pranav Ryan MD
[2018-07-15] MEDS ORDERED: NITROGLYCERIN SUBLINGUAL 0.4 MG BOTTLE OF 25. SL PRN (13:00)
[2018-07-15] MEDS ORDERED: ASPIRIN 325 MG TABLET PO ONE (13:00)
[2018-07-15 13:20] LABS: BASO % 1 % (0-3); EOS # 0.3 x10^3/uL (0.0-0.7); EOS % 4 % (0-3); HEMATOCRIT 30.7 % (39.0-53.0); HEMOGLOBIN 10.5 g/dL (13.0-17.5); LYMPH # 1.6 x10^3/uL (1.0-4.8); LYMPH % 19 % (24-48); MEAN CORPUSCULAR HEMOGLOBIN 29 pg (25-35); MEAN CORPUSCULAR HGB CONC 34 g/dL (31-37); MEAN CORPUSCULAR VOLUME 85 fL (79-100); MONO # 0.8 x10^3/uL (0.0-1.1); MONO % 9 % (0-9); NEUT # 5.7 x10^3uL (1.8-7.7); NEUT % 67 % (31-73); PLATELET COUNT 206 x10^3/uL (140-400); RED BLOOD COUNT 3.61 x10^6/uL (4.30-5.70); RED CELL DISTRIBUTION WIDTH 14.2 % (11.5-14.5); WHITE BLOOD COUNT 8.5 x10^3/uL (4.0-11.0)
--- NOTE | 2018-07-15 13:27 | EKG ---
[address] [address] Test Date: 2018-07-15 Test Time: 12:48:05 Pat Name: ELADIO BUSTILLOS Department: Room: Gender: M Datastage Developer: : 1945 Requested By: MILAGROS COLÓN Order Number: [id number] Reading MD: Seven Gillette Measurements Intervals [place] Rate: 57 P: [place]: QRS: 52 QRSD: 90 T: 70 QT: 446 QTc: 437 Interpretive Statements SINUS RHYTHM QRS(T) CONTOUR ABNORMALITY CONSISTENT WITH ANTERIOR INFARCT AGE UNDETERMINED ABNORMAL ECG Electronically Signed On 07-17-2018 12:58:41 CDT by Seven Gillette
--- NOTE | 2018-07-15 13:27 | RAD ---
EXAM: Chest, single view. HISTORY: Chest pain. COMPARISON: 12/12/2017. FINDINGS: Frontal views of the chest are obtained. There is no infiltrate, pleural effusion or pneumothorax. The heart is normal in size. There is a cardiac pacemaker defibrillator with leads in expected position. IMPRESSION: No acute pulmonary finding. Electronically signed by: Alicia Mayen MD (07/15/2018 1:23 PM) [id number]
[2018-07-15 13:32] LABS: ALBUMIN 3.8 g/dL (3.4-5.0); CALCIUM 10.9 mg/dL (8.5-10.1); CREATININE 1.4 mg/dL (0.7-1.3); DIRECT BILIRUBIN 0.1 mg/dL (0.0-0.2); POTASSIUM 4.1 mmol/L (3.5-5.1); TOTAL BILIRUBIN 0.3 mg/dL (0.2-1.0); TOTAL PROTEIN 7.4 g/dL (6.4-8.2)
--- NOTE | 2018-07-15 14:59 | PHYS DOC ---
Past History Past Medical History: CAD, CHF, Constipation, High Cholesterol, Hypertension, [place] Past Surgical History: Pacemaker, Other Additional Past Surgical Histo: stenting, AICD placement a smoker Smoking: Cigarettes, Greater than 1 pack/day Alcohol Use: None Drug Use: None Adult General Chief Complaint Chief Complaint: CHEST PAIN HPI HPI 73-year-old male with known CAD presenting with chest pain. Pain started this morning. He describes it as a pressure that is dull in the center of his chest radiates both sides bilaterally. It comes and goes. Not worse with deep inspiration. He has a history of GI bleeding in the past and has recently had a visit with a GI doctor for evaluation. Review of systems is negative for abdominal pain nausea vomiting fevers or chills. All other review of systems is negative unless otherwise noted in history of present illness. MDM/ED course: 73-year-old male presenting the emergency department today with chest pain. EKG obtained which shows mild ST segment elevation less than 1 mm in lead V3. Repeat EKG performed at [address] segment congruent in lead V3. Very minimal less than [address] elevation in V2 on repeat EKG. Patient's symptoms are improving. I spoke in real time to Dr. Ryan our scientific research manager about this patient's EKG. He agrees with plan by phone. CBC shows hemoglobin of 10 down from 13 which was taken recently. Patient has had GI bleeding recently. Likely culprit of patient's drop in hemoglobin. Chemistry panel otherwise showed mild increase of the patient's creatinine. Otherwise unremarkable. Troponin within normal limits. I discussed with the [facility]. Patient requests transfer to the [facility] for admission. Dr. Shook is the patient's scientific research manager. Radha Weinstein will be the patient's accepting physician. The patient is then transferred in stable condition. Review of Systems Review of Systems SEE ABOVE. Current Medications Current Medications Current Medications Medications (Trade) Dose Ordered Sig/[facility] Start Time Stop Time Status Last Admin Dose Admin Aspirin (Naty Aspirin) 325 mg 1X ONCE 07/15/18 13:00 07/15/18 13:01 DC 07/15/18 12:55 325 MG Nitroglycerin (Nitrostat) 0.4 mg PRN Q5MIN PRN 07/15/18 13:00 07/16/18 12:59 07/15/18 12:55 0.4 MG Allergies Allergies Allergies Coded Allergies Type Severity Reaction Last Updated Verified Penicillins Allergy Unknown 12/12/17 Yes Physical Exam Physical Exam SEE ABOVE Constitutional: Well developed, well nourished, no acute distress, non-toxic appearance. [] HENT: Normocephalic, atraumatic, bilateral external ears normal, oropharynx moist, no oral exudates, nose normal. [] Eyes: PERRLA, EOMI, conjunctiva normal, no discharge. [] Neck: Normal range of motion, no tenderness, supple, no stridor. [] Cardiovascular:Heart rate regular rhythm, no murmur [] Lungs & Thorax: Bilateral breath sounds clear to auscultation [] Abdomen: Bowel sounds normal, soft, no tenderness, no masses, no pulsatile masses. [] Skin: Warm, dry, no erythema, no rash. [] Back: No tenderness, no CVA tenderness. [] Extremities: No tenderness, no cyanosis, no clubbing, ROM intact, no edema. [] Neurologic: Alert and oriented X 3, normal motor function, normal sensory function, no focal deficits noted. [] Psychologic: Affect normal, judgement normal, mood normal. [] Current Patient Data Vital Signs Vital Signs Date Time Temp Pulse Resp B/P (MAP) Pulse Ox O2 Delivery O2 Flow Rate FiO2 07/15/18 13:59 58 18 113/76 (88) 97 07/15/18 13:02 Room Air 07/15/18 12:32 97.4 Lab Results Laboratory Tests Test 07/15/18 12:52 White Blood Count 8.5 x10^3/uL (4.0-11.0) Red Blood Count 3.61 x10^6/uL (4.30-5.70) L Hemoglobin 10.5 g/dL (13.0-17.5) L Hematocrit 30.7 % (39.0-53.0) L Mean Corpuscular Volume 85 fL (79-100) Mean Corpuscular Hemoglobin 29 pg (25-35) Mean Corpuscular Hemoglobin Concent 34 g/dL (31-37) Red Cell Distribution Width 14.2 % (11.5-14.5) Platelet Count 206 x10^3/uL (140-400) Neutrophils (%) (Auto) 67 % (31-73) Lymphocytes (%) (Auto) 19 % (24-48) L Monocytes (%) (Auto) 9 % (0-9) Eosinophils (%) (Auto) 4 % (0-3) H Basophils (%) (Auto) 1 % (0-3) Neutrophils # (Auto) 5.7 x10^3uL (1.8-7.7) Lymphocytes # (Auto) 1.6 x10^3/uL (1.0-4.8) Monocytes # (Auto) 0.8 x10^3/uL (0.0-1.1) Eosinophils # (Auto) 0.3 x10^3/uL (0.0-0.7) Basophils # (Auto) 0.0 x10^3/uL (0.0-0.2) Sodium Level 138 mmol/L (136-145) Potassium Level 4.1 mmol/L (3.5-5.1) Chloride Level 104 mmol/L (98-107) Carbon Dioxide Level 29 mmol/L (21-32) Anion Gap 5 (6-14) L Blood Urea Nitrogen 17 mg/dL (8-26) Creatinine 1.4 mg/dL (0.7-1.3) H Estimated GFR (Cockcroft-Gault) 50.0 Glucose Level 91 mg/dL (70-99) Calcium Level 10.9 mg/dL (8.5-10.1) H Total Bilirubin 0.3 mg/dL (0.2-1.0) Direct Bilirubin 0.1 mg/dL (0.0-0.2) Aspartate Amino Transferase (AST) 26 U/L (15-37) Alanine Aminotransferase (ALT) 41 U/L (16-63) Alkaline Phosphatase 72 U/L (46-116) Troponin I Quantitative < 0.017 ng/mL (0-0.055) Total Protein 7.4 g/dL (6.4-8.2) Albumin 3.8 g/dL (3.4-5.0) Lipase 238 U/L (73-393) EKG EKG [] Radiology/Procedures Radiology/Procedures [] Course & Med Decision Making Course & Med Decision Making Pertinent Labs and Imaging studies reviewed. (See chart for details) [] Dragon Disclaimer Dragon Disclaimer This electronic medical record was generated, in whole or in part, using a voice recognition dictation system. Departure Departure: Impression: Primary Impression: Chest pain Disposition: XFER SHT-TRM HOSP Condition: STABLE Referrals: ALEKSANDR DAVIS (PCP) MILAGROS COLÓN MD Jul 15, 2018 14:59
[2018-07-15 15:24] VITALS: BP 148/76
== END 2018-07-15 15:35 | disposition short-term general hospital (02) ==
LOC: ER 12:16
DX: R07.89 Other chest pain (principal); I25.10 Atherosclerotic heart disease of native coronary artery without angina pectoris; I50.9 Heart failure, unspecified; E78.00 Pure hypercholesterolemia, unspecified; I10 Essential (primary) hypertension; I25.2 Old myocardial infarction; F17.210 Nicotine dependence, cigarettes, uncomplicated; Z95.0 Presence of cardiac pacemaker; Z88.0 Allergy status to penicillin
CPT/HCPCS: 36415; 71045; 80048; 80076; 83690; 84484; 85025; 93005; 99285

== ENCOUNTER 2018-10-08 22:35 | Emergency (ER) | payer MEDICARE, OTHER ==
--- NOTE | 2018-10-08 23:11 | ED.ADGEN ---
Past History Past Medical History: A-Fib, CAD, CHF, Constipation, High Cholesterol, Hypertension, [place] Past Surgical History: Pacemaker, Other Additional Past Surgical Histo: stenting, AICD placement a smoker Smoking: Cigarettes, Greater than 1 pack/day Alcohol Use: None Drug Use: None Adult General Chief Complaint Chief Complaint Indigestion HPI HPI Jax is very pleasant 73 years old all with history of GERD in the past presented to the emergency department with chief complaint indigestion stated he started feeling like this after having dinner sonia felt a lot of gas in his stomach stated I wish her to pass some gas or burping I was not unable to do so however out burped in the emergency department and I feel so much better after burped . Patient stated that that indigestion feeling radiated his chest and resolved after he burped. Currently the patient's pain free Review of Systems Review of Systems Constitutional: Denies fever or chills [] Eyes: Denies change in visual acuity, redness, or eye pain [] HENT: Denies nasal congestion or sore throat [] Respiratory: Denies cough or shortness of breath [] Cardiovascular: No additional information not addressed in HPI [] GI: Denies abdominal pain, nausea, vomiting, bloody stools or diarrhea [] : Denies dysuria or hematuria [] Musculoskeletal: Denies back pain or joint pain [] Integument: Denies rash or skin lesions [] Neurologic: Denies headache, focal weakness or sensory changes [] Endocrine: Denies polyuria or polydipsia [] All other systems were reviewed and found to be within normal limits, except as documented in this note. Current Medications Current Medications Current Medications Medications (Trade) Dose Ordered Sig/Isabela Start Time Stop Time Status Last Admin Dose Admin Aspirin (Children'S Aspirin) 324 mg 1X ONCE 10/08/18 23:30 10/08/18 23:31 DC 10/08/18 23:35 324 MG Multi-Ingredient Mouthwash/Gargle (Gi Cocktail) 20 ml 1X ONCE 10/08/18 23:30 10/08/18 23:31 DC 10/08/18 23:35 20 ML Pantoprazole Sodium (Protonix) 40 mg 1X ONCE 10/08/18 23:30 10/08/18 23:31 DC 10/08/18 23:35 40 MG Allergies Allergies Allergies Coded Allergies Type Severity Reaction Last Updated Verified Penicillins Allergy Unknown 1/26/18 Yes Physical Exam Physical Exam Constitutional: Well developed, well nourished, no acute distress, non-toxic appearance. [] HENT: Normocephalic, atraumatic, bilateral external ears normal, oropharynx moist, no oral exudates, nose normal. [] Eyes: PERRLA, EOMI, conjunctiva normal, no discharge. [] Neck: Normal range of motion, no tenderness, supple, no stridor. [] Cardiovascular:Heart rate regular rhythm, no murmur [] Lungs & Thorax: Bilateral breath sounds clear to auscultation [] Abdomen: Bowel sounds normal, soft, no tenderness, no masses, no pulsatile masses. [] Skin: Warm, dry, no erythema, no rash. [] Back: No tenderness, no CVA tenderness. [] Extremities: No tenderness, no cyanosis, no clubbing, ROM intact, no edema. [] Neurologic: Alert and oriented X 3, normal motor function, normal sensory function, no focal deficits noted. [] Psychologic: Affect normal, judgement normal, mood normal. [] Current Patient Data Vital Signs Vital Signs Date Time Temp Pulse Resp B/P (MAP) Pulse Ox O2 Delivery O2 Flow Rate FiO2 10/08/18 22:42 98.2 65 20 98 Room Air Lab Results Laboratory Tests Test 10/08/18 22:47 White Blood Count 7.2 x10^3/uL (4.0-11.0) Red Blood Count 4.74 x10^6/uL (4.30-5.70) Hemoglobin 11.2 g/dL (13.0-17.5) L Hematocrit 35.7 % (39.0-53.0) L Mean Corpuscular Volume 75 fL (79-100) L Mean Corpuscular Hemoglobin 24 pg (25-35) L Mean Corpuscular Hemoglobin Concent 31 g/dL (31-37) Red Cell Distribution Width 17.3 % (11.5-14.5) H Platelet Count 222 x10^3/uL (140-400) Neutrophils (%) (Auto) 66 % (31-73) Lymphocytes (%) (Auto) 21 % (24-48) L Monocytes (%) (Auto) 8 % (0-9) Eosinophils (%) (Auto) 5 % (0-3) H Basophils (%) (Auto) 0 % (0-3) Neutrophils # (Auto) 4.8 x10^3uL (1.8-7.7) Lymphocytes # (Auto) 1.5 x10^3/uL (1.0-4.8) Monocytes # (Auto) 0.6 x10^3/uL (0.0-1.1) Eosinophils # (Auto) 0.3 x10^3/uL (0.0-0.7) Basophils # (Auto) 0.0 x10^3/uL (0.0-0.2) Segmented Neutrophils % 69 % (35-66) H Band Neutrophils % 1 % (0-9) Lymphocytes % 18 % (24-48) L Monocytes % 5 % (0-10) Eosinophils % 6 % (0-5) H Basophils % 1 % (0-3) Platelet Estimate Adequate (ADEQUATE) Large Platelets Occ Polychromasia Slight Hypochromasia Mod Anisocytosis Mod Ovalocytes Occ [place] Cells Occ Sodium Level 138 mmol/L (136-145) Potassium Level 3.4 mmol/L (3.5-5.1) L Chloride Level 101 mmol/L (98-107) Carbon Dioxide Level 26 mmol/L (21-32) Anion Gap 11 (6-14) Blood Urea Nitrogen 22 mg/dL (8-26) Creatinine 1.4 mg/dL (0.7-1.3) H Estimated GFR (Cockcroft-Gault) 50.0 Glucose Level 111 mg/dL (70-99) H Calcium Level 10.4 mg/dL (8.5-10.1) H Troponin I Quantitative 0.025 ng/mL (0-0.055) Lipase 227 U/L (73-393) EKG EKG irRegular rhythm[] Radiology/Procedures Radiology/Procedures [] Course & Med Decision Making Course & Med Decision Making Pertinent Labs and Imaging studies reviewed. (See chart for details) [] Final Impression Final Impression At 12:30 AM patient requested speak with me. Stated I feel fine I will go home I explained to him the importance of getting a second troponin he states it's only my stomach[is discharged home I do not want to wait I explained to him the risk and benefits she verbalizes understanding in the presence of his he verbalizes understanding for the possibility of missing diagnoses and management and bad outcome including heart attack, . I advised the patient to come back to the emergency department if he changes his mind Problems: (1) Acid indigestion Dragglenny Disclaimer Dragon Disclaimer This electronic medical record was generated, in whole or in part, using a voice recognition dictation system. EVELIO GARCIA MD Oct 08, 2018 23:11
--- NOTE | 2018-10-08 23:20 | EKG ---
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
--- NOTE | 2018-10-08 23:25 | RAD ---
Chest radiograph 10/08/2018 10:16 PM INDICATION: Chest pain COMPARISON: Chest radiograph July 15, 2018 TECHNIQUE: Frontal view of the chest is provided. FINDINGS: The cardiomediastinal silhouette is within normal limits. Left chest wall cardiac device is in similar position. There are no pleural effusions. There is no pulmonary vascular congestion. There is no pneumothorax. The lungs are clear. No significant osseous abnormality is identified. IMPRESSION: No acute cardiopulmonary process. Electronically signed by: Marizol Duran MD (10/08/2018 11:22 PM) [facility]
[2018-10-08] MEDS ORDERED: LIDO:MAALOX 1:1 20 ML SINGLE DOSE. PO ONE (23:30)
[2018-10-08] MEDS ORDERED: PANTOPRAZOLE 40 MG TABLET. PO ONE (23:30)
[2018-10-08] MEDS ORDERED: ASPIRIN 81 MG TAB.CHEW PO ONE (23:30)
[2018-10-08 23:56] LABS: BASO % 0 % (0-3); EOS # 0.3 x10^3/uL (0.0-0.7); EOS % 5 % (0-3); HEMATOCRIT 35.7 % (39.0-53.0); HEMOGLOBIN 11.2 g/dL (13.0-17.5); LYMPH # 1.5 x10^3/uL (1.0-4.8); LYMPH % 21 % (24-48); MEAN CORPUSCULAR HEMOGLOBIN 24 pg (25-35); MEAN CORPUSCULAR HGB CONC 31 g/dL (31-37); MEAN CORPUSCULAR VOLUME 75 fL (79-100); MONO # 0.6 x10^3/uL (0.0-1.1); MONO % 8 % (0-9); NEUT # 4.8 x10^3uL (1.8-7.7); NEUT % 66 % (31-73); PLATELET COUNT 222 x10^3/uL (140-400); RED BLOOD COUNT 4.74 x10^6/uL (4.30-5.70); RED CELL DISTRIBUTION WIDTH 17.3 % (11.5-14.5); WHITE BLOOD COUNT 7.2 x10^3/uL (4.0-11.0)
[2018-10-09 00:02] LABS: CALCIUM 10.4 mg/dL (8.5-10.1); CREATININE 1.4 mg/dL (0.7-1.3); POTASSIUM 3.4 mmol/L (3.5-5.1)
[2018-10-09 00:13] VITALS: BP 117/60
[2018-10-09 00:21] LABS: % BANDS 1 % (0-9); % BASOS 1 % (0-3); % EOS 6 % (0-5); % LYMPHS 18 % (24-48); % MONOS 5 % (0-10); % SEGS 69 % (35-66)
[2018-10-09 00:22] LABS: ANISOCYTOSIS MOD; HYPOCHROMIA MOD; PLT ESTIMATE ADEQUATE (ADEQUATE)
[2018-10-09 00:23] LABS: BURR CELLS OCC; OVALOCYTES OCC; POLYCHROMASIA SLIGHT
== END 2018-10-09 00:50 | disposition home or self-care (01) ==
LOC: ER 22:35
DX: K30 Functional dyspepsia (principal); I48.91 Unspecified atrial fibrillation; I11.0 Hypertensive heart disease with heart failure; I50.9 Heart failure, unspecified; E78.00 Pure hypercholesterolemia, unspecified; I25.2 Old myocardial infarction; F17.210 Nicotine dependence, cigarettes, uncomplicated; Z95.810 Presence of automatic (implantable) cardiac defibrillator; Z88.0 Allergy status to penicillin
CPT/HCPCS: 36415; 71045; 80048; 83690; 84484; 85007; 85025; 93005; 99284

== ENCOUNTER 2019-12-25 05:19 | Emergency (ER) | payer MEDICARE, OTHER ==
[~2019-12-25] VITALS: Ht 182.9 cm; Wt 78.0 kg
[~2019-12-25 05:19] MED LIST changes: +HYDR-1179 PO; -HYDR-79 PO
--- NOTE | 2019-12-25 05:26 | PHYS DOC ---
Past History Past Medical History: A-Fib, Arthritis, CAD, CHF, Constipation, High Cholesterol, Hypertension, [place] Past Surgical History: Pacemaker, Other Additional Past Surgical Histo: stenting, AICD placement a smoker Smoking: Cigarettes, Greater than 1 pack/day Alcohol Use: None Drug Use: None Adult General Chief Complaint Chief Complaint: ".. I hurting down here... maybe it a kidney stone.. I had two small one about a year ago... I can't pee.." HPI HPI Patient is a 74 year old male who presents with above hx and complaints of lower pelvic pain and urinary retention. Patient does give a history of past kidney stones that were reportedly past approximately year ago. Patient's primary of pain is pelvic area and no flank pain. Patient is distended. Does have a past history constipation. Patient denies any travel or specific ill contacts. Patient denies any intake bad food. Rates current pelvic pain as 10 out of 10.. No previous hx of urinary retention. Pt. follows with [facility] for care. Patient's primary are located at and cardiology Dr. Shook at . Patient has on occasion follows at [facility]. Review of Systems Review of Systems Constitutional: Denies fever or chills [] Eyes: Denies change in visual acuity, redness, or eye pain [] HENT: Denies nasal congestion or sore throat [] Respiratory: Denies cough or shortness of breath [] Cardiovascular: No additional information not addressed in HPI [] GI: Complaints of lower pelvic abdominal pain, nausea. Denies, vomiting, bloody stools or diarrhea [] : Denies dysuria or hematuria [] Musculoskeletal: Denies back pain or joint pain [] Integument: Denies rash or skin lesions [] Neurologic: Denies headache, focal weakness or sensory changes [] Endocrine: Denies polyuria or polydipsia [] All other systems were reviewed and found to be within normal limits, except as documented in this note. Family History Family History Noncontributory Current Medications Current Medications See nursing for home meds Allergies Allergies Allergies Coded Allergies Type Severity Reaction Last Updated Verified Penicillins Allergy Unknown 12/12/17 Yes Physical Exam Physical Exam Constitutional: in acute distress, non-toxic appearance. [] HENT: Normocephalic, atraumatic, bilateral external ears normal, oropharynx moist, no oral exudates, nose normal. [] Eyes: PERRLA, EOMI, conjunctiva normal, no discharge. [] Neck: Normal range of motion, no tenderness, supple, no stridor. [] Cardiovascular:Braydcardia Heart rate regular rhythm, no murmur []PMI to Lt. Lungs & Thorax: Bilateral breath sounds equal apexes scattered wheezes on auscultation . Pt[has]pacer defibrillator scar sided chest Abdomen: Bowel sounds creased, soft, lower pelvic tenderness, distended bladder, distended, no pulsatile masses. [] Rebound to lower pelvic. Patient declines rectal or prostate exams this time. Skin: Warm, dry, no erythema, no rash. [] Back: No tenderness, no CVA tenderness. [] Extremities: No tenderness, no cyanosis, no clubbing, ROM intact, no edema. No psoas sign Neurologic: Alert and oriented X 3, normal motor function, normal sensory function, no focal deficits noted. [] Psychologic: Affect anxious, judgement normal, mood normal. [] EKG EKG [] Radiology/Procedures Radiology/Procedures [][place] [address] IMAGING REPORT Signed PATIENT: ELADIO BUSTILLOS ACCOUNT: [id number] : 1945 LOCATION: ER AGE: 74 SEX: M EXAM STATUS: REG ER ORD. PHYSICIAN: SHANNON DAWN MD REASON: abdomen pain PROCEDURE: ACUTE ABDOMEN SERIES Acute Abdominal Series: Technique: PA view of the chest and supine and upright views of the abdomen were obtained. History: Pain. Comparison: None. Findings: The heart and pulmonary vessels appear normal. Left-sided defibrillator. Mild reticular opacities of lungs is likely chronic pulmonary fibrosis. There is a relative paucity of bowel gas. There is no free air. Impression: Nonspecific nonobstructive bowel gas pattern. Electronically signed by: Dee Ayala III, MD (12/25/2019 6:55 AM) [id number] DICTATED AND SIGNED BY: DEE AYALA III, MD DATE: 12/25/19 0655 CC: SHANNON DAWN MD; RYAN,ALEKSANDR J PA ~ Course & Med Decision Making Course & Med Decision Making Pertinent Labs and Imaging studies reviewed. (See chart for details) After Tracey pt. had out +/- 1000 cc of urine, with immediate relief of abdomen pain. Patient to wear fully with the time being will start on Flomax. Patient also will given 1 dose of Levaquin. Patient follow-up urine results. Patient return if any concerns. Patient instruction must follow-up with urology. Currently there is no urology service available in system patient states he follows at [facility] and they both have urology services and he would arrange for follow-up at . Patient to take Flomax 0.4 mg daily. Warned of the possibility of dizziness and hypotension with Flomax. Patient also warned of the possibility of elevation of INR since he is on Coumadin currently INR 2.4. Impression: 1. Abdomen Pain-Pelvic 2. Urinary Retention 3. Hx CADz, Afib 4. COPD Hx [] Dragon Disclaimer Dragon Disclaimer This electronic medical record was generated, in whole or in part, using a voice recognition dictation system. Departure Departure: Disposition: HOME/RESIDENCE PRIOR TO ADM Condition: STABLE Referrals: ALEKSANDR DAVIS (PCP) Scripts Levofloxacin (LEVAQUIN) 500 Mg Tablet 500 MG PO DAILY for hematuria for 5 Days, #5 TAB Prov: SHANNON DAWN MD 12/25/19 Tamsulosin Hcl (FLOMAX) 0.4 Mg Cap.er.24h 0.4 MG PO HS for urinary retention for 30 Days, #30 CAP.SR Prov: SHANNON DAWN MD 12/25/19 Guero Disclaimer This chart was dictated in whole or in part using Voice Recognition software in a busy, high-work load, and often noisy Emergency Department environment. It may contain unintended and wholly unrecognized errors or omissions. SHANNON DAWN MD Dec 25, 2019 05:26
[2019-12-25 05:30] VITALS: BP 166/91
[2019-12-25] MEDS ORDERED: ONDANSETRON PF 4 MG/2 ML VIAL. IVP ONE (05:30)
[2019-12-25] MEDS ORDERED: FAMOTIDINE 20 MG/2 ML VIAL IVP ONE (05:30)
[2019-12-25] MEDS ORDERED: KETOROLAC 30 MG/ML VIAL. IVP ONE (05:30)
[2019-12-25] MEDS ORDERED: IV RINGERS SOLUTION,LACTATED 1,000 ML IV SCH (05:30)
[2019-12-25 06:14] LABS: BASO # 0.1 x10^3/uL (0.0-0.2); BASO % 1 % (0-3); EOS # 0.3 x10^3/uL (0.0-0.7); EOS % 3 % (0-3); HEMATOCRIT 46.3 % (39.0-53.0); HEMOGLOBIN 15.5 g/dL (13.0-17.5); LYMPH # 1.2 x10^3/uL (1.0-4.8); LYMPH % 12 % (24-48); MEAN CORPUSCULAR HEMOGLOBIN 30 pg (25-35); MEAN CORPUSCULAR HGB CONC 34 g/dL (31-37); MEAN CORPUSCULAR VOLUME 91 fL (79-100); MONO # 0.7 x10^3/uL (0.0-1.1); MONO % 7 % (0-9); NEUT # 8.2 x10^3uL (1.8-7.7); NEUT % 79 % (31-73); PLATELET COUNT 167 x10^3/uL (140-400); RED BLOOD COUNT 5.11 x10^6/uL (4.30-5.70); RED CELL DISTRIBUTION WIDTH 13.5 % (11.5-14.5); WHITE BLOOD COUNT 10.4 x10^3/uL (4.0-11.0)
--- NOTE | 2019-12-25 06:17 | EKG ---
[address] [address] Test Date: 2019-12-25 Test Time: 06:10:39 Pat Name: ELADIO BUSTILLOS Department: Room: Gender: M Sleeve Sewer: : 1945 Requested By: SHANNON DAWN Order Number: [id number] Reading MD: Measurements Intervals [place] Rate: 54 P: 62 FL: 188 QRS: -25 QRSD: 94 T: 114 QT: 476 QTc: 453 Interpretive Statements SINUS ARRHYTHMIA VENTRICULAR PREMATURE COMPLEX(ES) LEFTWARD AXIS CONSIDER LEFT VENTRICULAR HYPERTROPHY QRS(T) CONTOUR ABNORMALITY CONSISTENT WITH ANTERIOR INFARCT AGE UNDETERMINED CONSISTENT WITH INFEROLATERAL INFARCT AGE UNDETERMINED ABNORMAL ECG RI6.01 No previous ECG available for comparison
[2019-12-25 06:20] LABS: CALCIUM 10.9 mg/dL (8.5-10.1); GFR 73.5
[2019-12-25 06:26] LABS: ALBUMIN 3.8 g/dL (3.4-5.0); DIRECT BILIRUBIN 0.1 mg/dL (0.0-0.2); TOTAL BILIRUBIN 0.5 mg/dL (0.2-1.0); TOTAL PROTEIN 7.4 g/dL (6.4-8.2)
[2019-12-25] MEDS ORDERED: levoFLOXacin 500 MG TABLET PO ONE (06:30)
[2019-12-25] MEDS ORDERED: TAMSULOSIN 0.4 MG CAP.ER.24H. PO ONE (06:30)
[2019-12-25] MEDS ORDERED: TAMS0.4C97 PO (06:33)
[2019-12-25] MEDS ORDERED: LEVO500T59 PO (06:33)
--- NOTE | 2019-12-25 06:58 | RAD ---
Acute Abdominal Series: Technique: PA view of the chest and supine and upright views of the abdomen were obtained. History: Pain. Comparison: None. Findings: The heart and pulmonary vessels appear normal. Left-sided defibrillator. Mild reticular opacities of lungs is likely chronic pulmonary fibrosis. There is a relative paucity of bowel gas. There is no free air. Impression: Nonspecific nonobstructive bowel gas pattern. Electronically signed by: Law Cheema III, MD (12/25/2019 6:55 AM) [id number]
== END 2019-12-25 07:18 | disposition home or self-care (01) ==
LOC: ER 05:19
DX: R33.9 Retention of urine, unspecified (principal); I25.10 Atherosclerotic heart disease of native coronary artery without angina pectoris; I48.91 Unspecified atrial fibrillation; J44.9 Chronic obstructive pulmonary disease, unspecified; I11.0 Hypertensive heart disease with heart failure; I50.9 Heart failure, unspecified; I25.2 Old myocardial infarction; E78.5 Hyperlipidemia, unspecified; F17.210 Nicotine dependence, cigarettes, uncomplicated; Z95.0 Presence of cardiac pacemaker; Z88.0 Allergy status to penicillin
CPT/HCPCS: 36415; 51702; 74022; 80048; 80076; 82150; 83690; 85025; 85610; 85730; 93005; 96374; 96375; 99285; G0103; J1885; J2405; J3490; J7120

== ENCOUNTER → 2020-01-28 | Outpatient (CLI) | payer MEDICARE, OTHER ==
[~2020-01-28] MED LIST changes: +LEVO500T59 PO; +TAMS0.4C97 PO
== END | disposition home or self-care (01) ==
LOC: LAB 08:16
PROVIDERS: ATTEND Urology
DX: Z12.5 Encounter for screening for malignant neoplasm of prostate (principal); R97.20 Elevated prostate specific antigen [PSA]
CPT/HCPCS: G0103

== ENCOUNTER 2020-02-14 23:04 | Emergency (ER) | payer MEDICARE, OTHER ==
[~2020-02-14] VITALS: Ht 182.9 cm; Wt 79.2 kg
[2020-02-14 23:09] VITALS: BP 127/74
--- NOTE | 2020-02-14 23:27 | PHYS DOC ---
Past History Past Medical History: A-Fib, Arthritis, CAD, CHF, Constipation, COPD, High Cholesterol, Hypertension, [place], Prostatitis, Other Past Medical History Urinary retention, enlarged prostate Past Surgical History: Pacemaker, Other Additional Past Surgical Histo: stent placement, defibrillator placement Smoking: Cigarettes, Greater than 1 pack/day Alcohol Use: None Drug Use: None Adult General Chief Complaint Chief Complaint: ABDOMINAL PAIN.. " I am fine now..... I had this feeling... Like I was going to have a big fart.. I took some MOM... prior to coming.. I passed some gas... and now the pain is all gone... it was down here on the mid and left lower... I just want to go home now..." HPI HPI Patient is a 74 year old male who presents with above hx and complaints of abdomen pain. Patient has history of multiple medical problems A. fib, arthritis, coronary artery disease, CHF, bronchitis and COPD, intermittent constipation, high cholesterol, hypertension, MIs, IBS. Enlarged prostate and deconditioning. Patient gives history of eating chicken and dumplings at 1800 hrs. No one else got sick eating the same food. No recent travel outside of the [place] area. No specific ill contacts. Patient does relate he recently had onset of constipation , and took some milk of magnesia before arriving to the emergency department . Patient states after passing gas his abdomen pain was relieved. Pt. follow with [facility] for care. Patient currently declines any workup in the emergency department and requesting immediate discharge. Pt. was able to urinate prior to discharge. Review of Systems Review of Systems Constitutional: Denies fever or chills [] Eyes: Denies change in visual acuity, redness, or eye pain [] HENT: Denies nasal congestion or sore throat [] Respiratory: Denies cough or shortness of breath [] Cardiovascular: No additional information not addressed in HPI [] GI: Complaints of abdominal pain that is now relieved. Patient denies, nausea, vomiting, bloody stools or diarrhea []patient complaints of constipation : Denies dysuria or hematuria [] Musculoskeletal: Denies back pain or joint pain [] Integument: Denies rash or skin lesions [] Neurologic: Denies headache, focal weakness or sensory changes [] Endocrine: Denies polyuria or polydipsia [] All other systems were reviewed and found to be within normal limits, except as documented in this note. Family History Family History Noncontributory to presentation Current Medications Current Medications See nursing for home meds Allergies Allergies Allergies Coded Allergies Type Severity Reaction Last Updated Verified Penicillins Allergy Unknown 12/12/17 Yes Physical Exam Physical Exam Constitutional: , no acute distress, non-toxic appearance. [] HENT: Normocephalic, atraumatic, bilateral external ears normal, oropharynx moist, no oral exudates, nose normal. [] Eyes: PERRLA, EOMI, conjunctiva normal, no discharge. [] Neck: Normal range of motion, no tenderness, supple, no stridor. [] Cardiovascular:Heart rate regular rhythm, no murmur [] Lungs & Thorax: Bilateral breath sounds equal apex with scattered wheezes. Pacer . Abdomen: Bowel sounds normal, soft, no tenderness, no masses, no pulsatile masses. []Abdomen is distended. Abdomen is tympanic. No rebound pain Skin: Warm, dry, no erythema, no rash. [] Back: No tenderness, no CVA tenderness. [] Extremities: No tenderness, no cyanosis, no clubbing, ROM intact, no edema. [] Arthritic changes. No cording in legs. No psoas sign. Neurologic: Alert and oriented X 3, normal motor function, normal sensory f unction, no focal deficits noted. [] Psychologic: Affect normal, judgement normal, mood normal. [] Current Patient Data Vital Signs Vital Signs Date Time Temp Pulse Resp B/P (MAP) Pulse Ox O2 Delivery O2 Flow Rate FiO2 02/14/20 23:09 97.6 56 16 127/74 (91) 98 Room Air EKG EKG [] Radiology/Procedures Radiology/Procedures [] Course & Med Decision Making Course & Med Decision Making Pertinent Labs and Imaging studies reviewed. (See chart for details) Patient declines labs or x-rays requesting discharge as soon as he got to his room. Patient to practice social distance, no travel, avoid crowds. Follow [facility] for up-to-date information on Covid-19 Clear fluid diet x 2 days. No solids or milk products. Allow bowel rest. Achy repeat dose of milk of magnesia tonight. Return if any concerns. Follow up with primary care. Impression: 1. Abdomen Pain 2. History of constipation 3. History of urinary retention [] Dragon Disclaimer Dragon Disclaimer This electronic medical record was generated, in whole or in part, using a voice recognition dictation system. Departure Departure: Disposition: 01 HOME/RESIDENCE PRIOR TO ADM Condition: STABLE Referrals: ALEKSANDR DAVIS (PCP) Guero Disclaimer This chart was dictated in whole or in part using Voice Recognition software in a busy, high-work load, and often noisy Emergency Department environment. It may contain unintended and wholly unrecognized errors or omissions. SHANNON DAWN MD Feb 14, 2020 23:27
== END 2020-02-14 23:57 | disposition home or self-care (01) ==
LOC: ER 23:04
DX: R10.9 Unspecified abdominal pain (principal); I11.0 Hypertensive heart disease with heart failure; I50.9 Heart failure, unspecified; I25.10 Atherosclerotic heart disease of native coronary artery without angina pectoris; J44.9 Chronic obstructive pulmonary disease, unspecified; E78.5 Hyperlipidemia, unspecified; I48.91 Unspecified atrial fibrillation; I25.2 Old myocardial infarction; F17.210 Nicotine dependence, cigarettes, uncomplicated; Z95.0 Presence of cardiac pacemaker; Z88.0 Allergy status to penicillin
CPT/HCPCS: 99281

== ENCOUNTER → 2020-04-06 | Outpatient (CLI) | payer MEDICARE, OTHER ==
[~2020-04-06] MED LIST changes: +IOHEXOL 240 MG/ML 50ML VIAL. ONE; +IOHEXOL 240 MG/ML 50ML VIAL. PO ONE; +IOHEXOL 300 MG/ML 75 ML VIAL. IV ONE
--- NOTE | 2020-04-06 11:54 | RAD ---
Examination: CT of the abdomen pelvis with IV contrast HISTORY: History of umbilical pain COMPARISON: 05/17/2018 TECHNIQUE: Axial CT images of the abdomen pelvis were performed with oral and IV contrast. Coronal and sagittal reformats are performed Exposure: One or more of the following individualized dose reduction techniques were utilized for this examination: 1. Automated exposure control 2. Adjustment of the mA and/or kV according to patient size 3. Use of iterative reconstruction technique FINDINGS: The bibasilar lungs are clear. No evidence of free air identified in the abdomen. The liver length grossly appears unremarkable. The spleen, pancreas grossly appears unremarkable. The gallbladder is mildly distended. There is a right adrenal nodule measuring 2.6 cm and small nodules measuring the largest measuring 1.7 cm identified in the left adrenal gland measuring 55 Hounsfield units. The stomach is mildly distended. The small bowel is nondilated. Feces and gas noted in the colon. The urinary bladder is mildly distended. Heterogeneous moderate enlarged prostate gland. The bilateral kidneys enhance symmetrically. Small cystic structures identified in the bilateral kidneys with the largest measuring 7 mm in the right kidney likely cysts. Punctate 2 mm calculi identified in the left kidney. Moderate degenerative changes lumbar spine. Severe aortic atherosclerosis. IMPRESSION: 1. No acute intra-abdominal findings. 2. Punctate calculi left kidney, unchanged. 3. Unchanged bilateral adrenal nodules. Electronically signed by: Rafi Wilkins MD (04/06/2020 11:51 AM) [id number]
== END ==
LOC: CT 08:55
DX: N20.0 Calculus of kidney (principal); E27.8 Other specified disorders of adrenal gland; K82.8 Other specified diseases of gallbladder; N40.0 Benign prostatic hyperplasia without lower urinary tract symptoms; I70.0 Atherosclerosis of aorta; Z88.0 Allergy status to penicillin
CPT/HCPCS: 74177; Q9967

== ENCOUNTER → 2020-07-25 | Outpatient (CLI) | payer MEDICARE, OTHER ==
[~2020-07-25] MED LIST changes: -IOHEXOL 240 MG/ML 50ML VIAL. ONE; -IOHEXOL 240 MG/ML 50ML VIAL. PO ONE; -IOHEXOL 300 MG/ML 75 ML VIAL. IV ONE
== END ==
LOC: LAB 09:31
PROVIDERS: ATTEND Internal Medicine Interventional Cardiology
DX: I47.2 Ventricular tachycardia (principal); I48.0 Paroxysmal atrial fibrillation; I25.5 Ischemic cardiomyopathy
CPT/HCPCS: 36415; 83735

== ENCOUNTER → 2020-10-03 | Outpatient (CLI) | payer MEDICARE, OTHER ==
[2020-10-03 11:02] LABS: CALCIUM 11.1 mg/dL (8.5-10.1); CREATININE 1.2 mg/dL (0.7-1.3); GFR 59.3; POTASSIUM 3.6 mmol/L (3.5-5.1)
== END ==
LOC: LAB 09:15
PROVIDERS: ATTEND Internal Medicine Interventional Cardiology
DX: I10 Essential (primary) hypertension (principal)
CPT/HCPCS: 36415; 80048

== ENCOUNTER → 2021-05-01 | Outpatient (CLI) | payer MEDICARE, OTHER ==
[2021-05-01 09:28] LABS: ALBUMIN 3.9 g/dL (3.4-5.0); CALCIUM 10.7 mg/dL (8.5-10.1); CREATININE 1.1 mg/dL (0.7-1.3); DIRECT BILIRUBIN 0.1 mg/dL (0.0-0.2); GFR 65.6; POTASSIUM 4.2 mmol/L (3.5-5.1); TOTAL BILIRUBIN 0.4 mg/dL (0.2-1.0); TOTAL PROTEIN 7.7 g/dL (6.4-8.2)
[2021-05-01 09:29] LABS: BASO # 0.1 x10^3/uL (0.0-0.2); BASO % 1 % (0-3); EOS # 0.5 x10^3/uL (0.0-0.7); EOS % 6 % (0-3); HEMATOCRIT 45.8 % (39.0-53.0); HEMOGLOBIN 15.5 g/dL (13.0-17.5); LYMPH # 1.5 x10^3/uL (1.0-4.8); LYMPH % 19 % (24-48); MEAN CORPUSCULAR HEMOGLOBIN 30 pg (25-35); MEAN CORPUSCULAR HGB CONC 34 g/dL (31-37); MEAN CORPUSCULAR VOLUME 88 fL (79-100); MONO # 0.6 x10^3/uL (0.0-1.1); MONO % 7 % (0-9); NEUT # 5.2 x10^3uL (1.8-7.7); NEUT % 66 % (31-73); PLATELET COUNT 163 x10^3/uL (140-400); RED BLOOD COUNT 5.22 x10^6/uL (4.30-5.70); RED CELL DISTRIBUTION WIDTH 14.3 % (11.5-14.5); WHITE BLOOD COUNT 7.8 x10^3/uL (4.0-11.0)
[2021-05-02 00:47] LABS: HEMOGLOBIN A1C 5.6 % (4.8-5.6)
== END ==
LOC: LAB 08:43
DX: I25.5 Ischemic cardiomyopathy (principal); I25.10 Atherosclerotic heart disease of native coronary artery without angina pectoris; I10 Essential (primary) hypertension; E78.2 Mixed hyperlipidemia; I77.9 Disorder of arteries and arterioles, unspecified; R73.09 Other abnormal glucose
CPT/HCPCS: 36415; 80048; 80061; 80076; 83036; 85025

== ENCOUNTER 2021-11-04 05:52 | Emergency (ER) | payer MEDICARE, OTHER ==
[~2021-11-04] VITALS: Ht 182.9 cm; Wt 78.8 kg
[2021-11-04 06:11] VITALS: BP 149/77
--- NOTE | 2021-11-04 06:23 | PHYS DOC ---
Past History Past Medical History: A-Fib, Arthritis, CAD, CHF, Constipation, COPD, High Cholesterol, Hypertension, RI, Prostatitis, Other Past Surgical History: Other Additional Past Surgical Histo: stent placement, defibrillator placement Smoking: Cigarettes, Greater than 1 pack/day Alcohol Use: None Drug Use: None General Adult EDM: Chief Complaint: URINARY RETENTION HPI: HPI: 76-year-old male presents with urinary retention. The patient states that he has been able to urinate since last night. It is now quite uncomfortable low in his pelvis. He denies a history of urinary retention or enlarged prostate. He has had an episode of retention like this several years ago. He believes he had kidney stones at that time. Patient denies fever or chills. He has no other complaints at this time. Review of Systems: Review of Systems: Constitutional: Denies fever or chills Eyes: Denies change in visual acuity HENT: Denies nasal congestion or sore throat Respiratory: Denies cough or shortness of breath Cardiovascular: Denies chest pain or edema GI: Denies abdominal pain, nausea, vomiting, bloody stools or diarrhea : Urinary retention Musculoskeletal: Denies back pain or joint pain Integument: Denies rash Neurologic: Denies headache, focal weakness or sensory changes Endocrine: Denies polyuria or polydipsia Lymphatic: Denies swollen glands Psychiatric: Denies depression or anxiety Allergies: Allergies: Allergies Coded Allergies Type Severity Reaction Last Updated Verified Penicillins Allergy Unknown 12/12/17 Yes Physical Exam: PE: Constitutional: Well developed, well nourished, no acute distress, non-toxic appearance. [] HENT: Normocephalic, atraumatic, bilateral external ears normal, oropharynx mois t, no oral exudates, nose normal. [] Eyes: PERRLA, EOMI, conjunctiva normal, no discharge. [] Neck: Normal range of motion, no tenderness, supple, no stridor. [] Cardiovascular:Heart rate regular rhythm, no murmur [] Lungs & Thorax: Bilateral breath sounds clear to auscultation [] Abdomen: Bowel sounds normal, soft, suprapubic fullness and tenderness, no masses, no pulsatile masses. [] Skin: Warm, dry, no erythema, no rash. [] Back: No tenderness, no CVA tenderness. [] Extremities: No tenderness, no cyanosis, no clubbing, ROM intact, no edema. [] Neurologic: Alert and oriented X 3, normal motor function, normal sensory function, no focal deficits noted. [] Psychologic: Affect normal, judgement normal, mood normal. [] Current Patient Data: Vital Signs: Vital Signs Date Time Temp Pulse Resp B/P (MAP) Pulse Ox O2 Delivery O2 Flow Rate FiO2 11/04/21 06:11 81 20 149/77 (101) 98 Room Air EKG: EKG: [] Radiology/Procedures: Radiology/Procedures: [] Heart Score: C/O Chest Pain: N/A Risk Factors: Risk Factors: DM, Current or recent (<one month) smoker, HTN, HLP, family history of CAD, obesity. Risk Scores: Score 0 - 3: 2.5% MACE over next 6 weeks - Discharge Home Score 4 - 6: 20.3% MACE over next 6 weeks - Admit for Clinical Observation Score 7 - 10: 72.7% MACE over next 6 weeks - Early Invasive Strategies Course & Med Decision Making: Course & Med Decision Making Pertinent Labs and Imaging studies reviewed. (See chart for details) The patient's bladder scan showed greater than 800 mL. The patient would prefer straight cath versus leaving in a [facility]. We have straight cath the patient. He had greater than 1000 mL of drainage. The patient's urinalysis negative for infection. He is stable for discharge at this time. [] Dragon Disclaimer: Dragon Disclaimer: This electronic medical record was generated, in whole or in part, using a voice recognition dictation system. Departure Departure: Impression: Primary Impression: Urinary retention Disposition: HOME / SELF CARE / HOMELESS Condition: IMPROVED Referrals: ALEKSANDR DAVIS (PCP) Patient Instructions: Urinary Retention, Acute, Male, [id number] JUAN SINGH DO Nov 04, 2021 06:23
[2021-11-04 07:08] LABS: BACTERIA,URINE 0 /HPF (0-FEW); BILIRUBIN,URINE NEG (NEG); CLARITY,URINE CLEAR; COLOR,URINE YELLOW; GLUCOSE,URINE NEG (NEG); NITRITE,URINE NEG (NEG); UROBILINOGEN,URINE 0.2 mg/dL (0.2 mg/dL)
[2021-11-04 07:09] LABS: SQUAMOUS EPITHELIAL CELL,UR OCC /LPF
== END 2021-11-04 07:19 | disposition home or self-care (01) ==
LOC: ER 05:52
DX: R33.9 Retention of urine, unspecified (principal); I48.91 Unspecified atrial fibrillation; M19.90 Unspecified osteoarthritis, unspecified site; I25.10 Atherosclerotic heart disease of native coronary artery without angina pectoris; I11.0 Hypertensive heart disease with heart failure; I50.9 Heart failure, unspecified; J44.9 Chronic obstructive pulmonary disease, unspecified; E78.00 Pure hypercholesterolemia, unspecified; I25.2 Old myocardial infarction; F17.210 Nicotine dependence, cigarettes, uncomplicated; Z88.0 Allergy status to penicillin
CPT/HCPCS: 51702; 81001; 87086; 99284

== ENCOUNTER → 2022-03-26 | Outpatient (CLI) | payer MEDICARE, OTHER | LOC: LAB 08:37 | PROVIDERS: ATTEND Urology | DX: N40.2 Nodular prostate without lower urinary tract symptoms (principal) | CPT/HCPCS: G0103 ==